=== PATIENT | female | born 1980 | race Caucasian/White ===

== ENCOUNTER 2022-08-05 10:07 | Day surgery (SDC) | payer BC ==
[2022-08-03 15:49] VITALS: BMI 42.7
[~2022-08-05 10:07] MED LIST: Bupivacaine PF 0.5% 30 ML VIAL ONE; Neomycin-Polymyxin 1 ML AMP ONE
[2022-08-05] MEDS ORDERED: CEFAZOLIN 2 GM VIAL ONE (10:29)
[2022-08-05] MEDS ORDERED: Promethazine HCl 25 MG/ML VIAL ONE (10:50)
[2022-08-05] MEDS ORDERED: Fentanyl 100 MCG/2 ML VIAL ONE ×2 (10:57→11:52)
[2022-08-05] MEDS ORDERED: Ketorolac Tromethamine 30 MG/ML VIAL ONE ×2 (11:22→11:52)
[2022-08-05] MEDS ORDERED: PROPOFOL 20 ML ONE (11:43)
== END 2022-08-05 13:00 | disposition home or self-care (01) ==
LOC: CSHSDC 10:07
PROVIDERS: ATTEND Podiatrist Foot & Ankle Surgery
PROC: 0J8Q0ZZ Division of Right Foot Subcutaneous Tissue and Fascia, Open Approach (ICD-10-PCS; principal; 2022-08-05)
DX: M72.2 Plantar fascial fibromatosis (principal); M25.571 Pain in right ankle and joints of right foot; M77.31 Calcaneal spur, right foot; Z79.899 Other long term (current) drug therapy; E66.01 Morbid (severe) obesity due to excess calories; Z68.41 Body mass index [BMI] 40.0-44.9, adult
CPT/HCPCS: J1885; J2550; J2704; J3010; S0020